=== PATIENT | male | born 1975 | race Caucasian/White ===

== ENCOUNTER 2019-04-19 13:02 | Emergency (ER) | payer BC ==
[~2019-04-19] VITALS: Ht 177.8 cm; Wt 90.7 kg
[2019-04-19] MEDS ORDERED: NAPROSYN500 MG PO (14:47)
== END 2019-04-19 14:51 | disposition home or self-care (01) ==
LOC: ED 13:02
PROVIDERS: Nurse Practitioner Family
DX: M71.21 Synovial cyst of popliteal space [Baker], right knee (principal); M62.838 Other muscle spasm

== ENCOUNTER 2025-07-01 20:39 | Emergency (ER) | payer SELFPAY ==
[~2025-07-01] VITALS: Ht 185.4 cm; Wt 90.7 kg
[~2025-07-01 20:39] MED LIST: NAPROSYN500 MG PO
== END 2025-07-01 21:35 | disposition left against medical advice (07) ==
LOC: ED 20:39
DX: R55 Syncope and collapse (principal); I10 Essential (primary) hypertension; M10.9 Gout, unspecified; Z53.29 Procedure and treatment not carried out because of patient's decision for other reasons